=== PATIENT | male | born 1990 | race Caucasian/White ===

== ENCOUNTER → 2024-01-17 | Outpatient (CLI) | payer BC ==
[~2024-01-17] MED LIST: AMPDEX5 PO; Omeprazole20 M1 PO
== END | disposition home or self-care (01) ==
LOC: LAB SHORT 14:15 → LAB 14:15
DX: R10.13 Epigastric pain (principal)
CPT/HCPCS: 87338

== ENCOUNTER → 2025-08-19 | Outpatient (CLI) | payer BC ==
[2025-08-19 16:32] LABS: Chlamydia Trachomatis Urine NOT DETECTED (NOT DETECT); Neisseria Gonorrhoea Urine NOT DETECTED (NOT DETECT)
== END | disposition home or self-care (01) ==
LOC: LAB SHORT 11:01 → LAB 11:01
PROVIDERS: Student in an Organized Health Care Education/Training Program
DX: Z20.2 Contact with and (suspected) exposure to infections with a predominantly sexual mode of transmission (principal)
CPT/HCPCS: 87491; 87591